=== PATIENT | male | born 1955 | race Caucasian/White ===

== ENCOUNTER → 2018-03-08 | Outpatient (CLI) | payer MEDICARE, MEDICAID ==
--- NOTE | 2018-03-08 16:54 | REP ---
MRA BRAIN WITHOUT CONTRAST: HISTORY: Aneurysm. 3D TOF MR angiography was performed at the level of the [place]. 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 There is no recurrent or new aneurysm. 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 There is origin of the left posterior cerebral artery. Major intracranial vessels are patent. The left vertebral artery terminates in the left posterior inferior cerebellar artery. The right vertebral artery is dominant. 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 There is no recurrent or new aneurysm. Electronically Signed by Pepe Junior MD 03/08/2018 04:58 P
--- NOTE | 2018-03-08 17:07 | REP ---
MRA CAROTIDS WITHOUT AND WITH CONTRAST: HISTORY: Aneurysm. Unenhanced 2D and 3D TOF MR angiography were performed at the level of the carotid bifurcations. The examination is limited secondary to motion. The distal common carotid arteries and origins of the external and internal carotid arteries are normal. The vertebral arteries are patent. The right vertebral artery is dominant. There are no definite atherosclerotic lesions. IMPRESSION: Limited examination demonstrating no definite atherosclerotic lesion. Electronically Signed by Pepe Junior MD 03/08/2018 05:09 P
== END ==
LOC: M RAD 14:43
PROVIDERS: ATTEND Student in an Organized Health Care Education/Training Program
DX: I67.1 Cerebral aneurysm, nonruptured (principal)

== ENCOUNTER 2020-08-09 09:51 | Emergency (ER) | payer MEDICARE, MEDICAID ==
[~2020-08-09] VITALS: Ht 180.3 cm; Wt 139.6 kg
[2020-08-09 09:52] VITALS: BP 141/72
[2020-08-09] MEDS ORDERED: ATOR40TA75 (09:59)
[2020-08-09] MEDS ORDERED: OMEP-218 (09:59)
[2020-08-09] MEDS ORDERED: SERT50TA29 (09:59)
[2020-08-09] MEDS ORDERED: METO1TAB87 (09:59)
[2020-08-09] MEDS ORDERED: GLIP5TAB20 (09:59)
[2020-08-09] MEDS ORDERED: LOSA100T50 (09:59)
[2020-08-09] MEDS ORDERED: XIGD1TAB3 (09:59)
[2020-08-09] MEDS ORDERED: VITA50005 (09:59)
[2020-08-09] MEDS ORDERED: CLOT1CRE71 TOP (10:59)
== END 2020-08-09 11:25 | disposition home or self-care (01) ==
LOC: M ED 09:51
DX: B37.0 Candidal stomatitis (principal); E78.5 Hyperlipidemia, unspecified; I10 Essential (primary) hypertension; F41.9 Anxiety disorder, unspecified; F32.9 Major depressive disorder, single episode, unspecified

== ENCOUNTER → 2024-02-07 | Outpatient (REF) | payer MEDICARE ==
[~2024-02-07] MED LIST: ATOR40TA75; CLOT1CRE71 TOP; ERGO500029; GLIP5TAB20; LOSA100T46; METO1TAB87; OMEP-173; SERT50TA29; XIGD1TAB3
== END ==
LOC: M WUC 20:23
PROVIDERS: ATTEND Physician Assistant
DX: R30.0 Dysuria (principal); R31.9 Hematuria, unspecified